=== PATIENT | female | born 1980 | race Caucasian/White ===

== ENCOUNTER 2018-12-17 06:39 | Emergency (ER) | payer BC ==
[~2018-12-17] VITALS: Ht 167.6 cm; Wt 72.7 kg
[2018-12-17 06:40] VITALS: Ht 167.6 cm; Wt 72.7 kg
[2018-12-17] MEDS ORDERED: NOVOLOG100 UNIT/1 SC (06:42)
[2018-12-17 07:46] LABS: BASOPHILS 0.3 % (0-2); HEMATOCRIT 43.1 % (36.0-48.0); HEMOGLOBIN 15.7 g/dL (12-16); IMMATURE GRANULOCYTES 0.1 % (0-5); LYMPHOCYTES 37.5 % (15-50); MCHC 36.4 g/dL (31.0-37.0); MCV 87.8 fL (80.0-100.0); MEAN PLATELET VOLUME 10.2 fL (7.4-10.4); MONOCYTES 7.1 % (2-11); PLATELET COUNT 221 10x3/uL (130-400); RBC 4.91 10x6/uL (4.00-5.40); RDW 11.8 % (11.5-14.5); WBC 7.9 10x3/uL (4.8-10.8)
[2018-12-17 07:48] LABS: APTT 24.8 SECONDS (22.8-39.4); INR 0.98 (0.85-1.17); PROTIME 12.5 SECONDS (11.6-15.0)
[2018-12-17 07:54] LABS: ALBUMIN 3.5 g/dL (3.4-5.0); ALKALINE PHOSPHATASE 41 U/L (46-116); ALT (SGPT) 22 U/L (10-68); BILIRUBIN - TOTAL 0.48 mg/dL (0.2-1.3); CALC OSMOLALITY 285 mosm/kg (275-300); CALCIUM 8.4 mg/dL (8.5-10.1); CARBON DIOXIDE 25.3 mmol/L (21.0-32.0); CHLORIDE - SERUM 101 mmol/L (98-107); CREATININE - SERUM 0.6 mg/dL (0.6-1.3); GLUCOSE 342 mg/dL (74-106); POTASSIUM - SERUM 3.1 mmol/L (3.5-5.1); PROTEIN - SERUM 6.4 g/dL (6.4-8.2); SODIUM 136 mmol/L (136-145); UREA NITROGEN 12 mg/dL (7-18); eGFR NON AFRICAN AMERICAN > 90 mL/min (90-120)
[2018-12-17] MEDS ORDERED: HYDROCODON-ACE1 EAC2 PO (09:14)
[2018-12-17 10:15] VITALS: BP 107/76
== END 2018-12-17 10:15 | disposition home or self-care (01) ==
LOC: D.ER 06:39
PROVIDERS: Family Medicine
DX: E11.65 Type 2 diabetes mellitus with hyperglycemia (principal); Z79.4 Long term (current) use of insulin; E87.6 Hypokalemia; M79.18 Myalgia, other site; M54.2 Cervicalgia